=== PATIENT | female | born 1995 | race Caucasian/White ===

== ENCOUNTER → 2022-04-26 | Outpatient (CLI) | payer BC ==
[~2022-04-26] MED LIST: AMPH15TA PO; BIRTH CONTROL PILLS PO
--- NOTE | 2022-04-26 17:05 | Diagnostic Imaging Report ---
INDICATION: survey. TECHNIQUE: Multiple real-time grayscale images were obtained over the gravid uterus. COMPARISON: None. FINDINGS: There is a single live fetus in a cephalic presentation. heart rate was recorded at 129 BPM. Placenta is posterior. Amniotic fluid volume is normal. Cervical length is 5.1 cm. survey demonstrates kidneys, bladder, and stomach to be unremarkable. brain is unremarkable. There is a four-chamber heart. There is a three-vessel cord with normal insertion. spine is unremarkable. Biometrical measurements are as follows: Biparietal 5.48 cm, age 22 weeks 5 days. Head circumference 20.60 cm, age 22 weeks 5 days. Abdominal circumference 16.38 cm, age 21 weeks 4 days. Femur length 3.49 cm, age 21 weeks 1 days. Sonographic estimate age: 22 weeks 1 days. Sonographic estimated date of delivery: 08/29/2022. Estimated Weight: 424 gm (+/- 62 gm). LMP percentile: 53%. heart rate: 129 beats per minute. number: 1 of 1. IMPRESSION: Single live IUP of 22 weeks 1 day gestational age. Estimated date of confinement sonographically is 08/29/2022. Dictated by: Dictated on workstation # [id number]
== END ==
LOC: RAD 13:32
PROVIDERS: ATTEND Nurse Practitioner Women's Health
DX: Z34.02 Encounter for supervision of normal first pregnancy, second trimester (principal); Z3A.22 22 weeks gestation of pregnancy
CPT/HCPCS: 76805

== ENCOUNTER 2022-08-19 12:30 | Outpatient (CLI) | payer BC ==
[~2022-08-19] VITALS: Ht 154.9 cm; Wt 76.8 kg
[2022-08-19 12:40] VITALS: BP 122/73
[2022-08-19 13:44] LABS: BILIRUBIN,URINE NEGATIVE (NEGATIVE); CLARITY,URINE SL CLOUDY; COLOR,URINE YELLOW; GLUCOSE, URINE (UA) NEGATIVE (NEGATIVE); KETONES,URINE 1+ (NEGATIVE); LEUKOCYTE ESTERASE ,URINE 2+ (NEGATIVE); NITRITE,URINE NEGATIVE (NEGATIVE); PH,URINE 6.5 (5-9); PROTEIN,URINE TRACE (NEGATIVE)
[2022-08-19 14:01] LABS: BACTERIA,URINE LARGE /HPF; SQUAMOUS EPITHELIAL CELL,UR 25-50 /HPF; WBC,URINE 25-50 /HPF
[2022-08-19 14:25] VITALS: BP 123/68
--- NOTE | 2022-08-20 08:32 | Physician Query-Final Dx ---
MARIA ESTHER08/20/22 0832: Clinic Account Progress/Dx Physician Query: Please give diagnosis Please include # weeks gestation Date of Service Aug 19, 2022 at 12:30 EDILBERTO TOUSSAINT DO 08/20/22 1617: Clinic Account Progress/Dx DIAGNOSIS: Diagnosis 37 week IUP URI Irregular contractions MARIA ESTHER,SepAug 20, 2022 08:32 EDILBERTO TOUSSAINT DO Aug 20, 2022 16:17
== END 2022-08-19 14:50 ==
LOC: LDRP 12:30 → WSo 12:30
PROVIDERS: ATTEND Obstetrics & Gynecology
DX: O47.1 False labor at or after 37 completed weeks of gestation (principal); O99.52 Diseases of the respiratory system complicating childbirth; Z3A.37 37 weeks gestation of pregnancy
CPT/HCPCS: 81000; 87088

== ENCOUNTER 2022-09-04 01:12 | Inpatient (IN) | payer BC ==
[2022-09-04] VITALS (40 sets, daily range): BP systolic 104–130; BP diastolic 56–87
[~2022-09-04] VITALS: Ht 154.9 cm; Wt 77.1 kg
[2022-09-04] MEDS ORDERED: D5 LR IV SOLUTION 1,000 ML IV SCH (01:45)
[2022-09-04] MEDS ORDERED: D5 LR IV SOLUTION 1,000 ML IV ONE (01:46)
[2022-09-04 01:56] LABS: BASOPHILS # (AUTO) 0.1 10^3/uL (0.0-0.1); BASOPHILS % (AUTO) 0 % (0-10); EOSINOPHILS # (AUTO) 0.1 10^3/uL (0.0-0.3); EOSINOPHILS % (AUTO) 1 % (0-10); HEMATOCRIT 33 % (35-52); HEMOGLOBIN 10.8 g/dL (11.5-16.0); LYMPHOCYTES # (AUTO) 3.4 10^3/uL (1.0-4.0); LYMPHOCYTES % (AUTO) 26 % (12-44); MEAN CORPUSCULAR HEMOGLOBIN 26 pg (25-34); MEAN CORPUSCULAR HGB CONC 33 g/dL (32-36); MEAN CORPUSCULAR VOLUME 78 fL (80-99); MEAN PLATELET VOLUME 11.5 fL (9.0-12.2); MONOCYTES # (AUTO) 1.2 10^3/uL (0.0-1.0); MONOCYTES % (AUTO) 9 % (0-12); NEUTROPHILS # (AUTO) 8.4 10^3/uL (1.8-7.8); NEUTROPHILS % (AUTO) 64 % (42-75); PLATELET COUNT 268 10^3/uL (130-400); WHITE BLOOD COUNT 13.2 10^3/uL (4.3-11.0)
[2022-09-04] MEDS ORDERED: fentaNYL 2 mcg/ml BUPIVA 0.125 100 ML ONE (02:08)
[2022-09-04] MEDS ORDERED: fentaNYL INJ 100 MCG/2 ML AMP ONE (02:22)
[2022-09-04] MEDS ORDERED: BUPIVACAINE 0.25% 30 ML (SENSORCAINE) VIAL ONE (02:22)
[2022-09-04] MEDS ORDERED: diphenhydrAMINE 50 MG/ML INJ (BENADRYL) IV PRN (03:00)
[2022-09-04] MEDS ORDERED: LACTATED RINGERS 1,000 ML IV SCH (03:00)
[2022-09-04] MEDS ORDERED: ONDANSETRON 4 MG/2 ML (SDV) Z0FRAN IV PRN (03:00)
[2022-09-04] MEDS ORDERED: fentaNYL 2 mcg/ml BUPIVA 0.125 100 ML EPI SCH (03:00)
[2022-09-04] MEDS ORDERED: NALOXONE 0.4 MG/ML 1 ML (NARCAN) VIAL IV PRN ×2 (03:00→08:00)
[2022-09-04] MEDS ORDERED: OXYTOCIN PRE-MIX DRIP 500 ML IV ONE ×2 (05:49→07:54)
[2022-09-04] MEDS ORDERED: LIDOCAINE 1% INJ 20 ML VIAL ONE (05:50)
--- NOTE | 2022-09-04 05:57 | History & Physical-OB ---
OB - Chief Complaint & HPI Date/Time Date of Admission: Date of Admission: Sep 04, 2022 at 01:30 Date seen by a Provider: Sep 04, 2022 Time Seen by a Provider: 05:50 Chief Complaint/History OB-Reason for Admission/Chief: Onset of Labor Hx : 1 Hx Para: 0 Expected Date of Delivery: Sep 04, 2022 Gestational Age in Weeks: 40 Gestational Age in Days: 0 Admission Nurse Assessment Rev: Yes History of Labs A neg Antibody neg GBS neg Allergies and Home Medications Allergies Coded Allergies: Penicillins (Unverified Allergy, Mild, SICK, 01/29/11) red dye (Unverified Allergy, Unknown, 04/26/22) RED DYE IN MEDICATIONS Patient Home Medication List Home Medication List Reviewed: Yes Amphet Asp/Amphet/D-Amphet (Adderall 15 Mg Tablet) 15 Mg Tablet, 15 MG PO DAILY, (Reported) Entered as Reported by: MAC COTA on 04/08/14 4020 OB - History Hx of Present Care: Yes Ultrasounds: Normal mid trimester US Obstetrical Complications: None Medical Complications: None Delivery History Hx Blood Disorders: No Adverse Rxn to Tranfusion: No Patient Past Medical History n/a Social History/Family History 2nd Hand Smoke Exposure: No Immunizations Tetanus Booster (TDap): Less than 5yrs OB - Admission Exam Physical Exam HEENT: NCAT Heart: Rhythm Normal Lungs: Clear Abdomen: Gravid Extremities: Normal Reflexes: Normal Cervical Dilatation: 5cm Effacement: 75% Station: -1 Membranes: Intact Heart Rate: 130's Accelerations: Accelerations Present Decelerations: No Decelerations Short Term Variability: Present Correction Variability: Average (6-25) Contractions on Admission: < 5 Minutes Apart Intensity: Mild Labs Laboratory Tests Test 09/04/22 01:35 Range/Units White Blood Count 13.2 H 4.3-11.0 10^3/uL Red Blood Count 4.18 3.80-5.11 10^6/uL Hemoglobin 10.8 L 11.5-16.0 g/dL Hematocrit 33 L 35-52 % Mean Corpuscular Volume 78 L 80-99 fL Mean Corpuscular Hemoglobin 26 25-34 pg Mean Corpuscular Hemoglobin Concent 33 32-36 g/dL Red Cell Distribution Width 14.6 H 10.0-14.5 % Platelet Count 268 130-400 10^3/uL Mean Platelet Volume 11.5 9.0-12.2 fL Immature Granulocyte % (Auto) 1 % Neutrophils (%) (Auto) 64 42-75 % Lymphocytes (%) (Auto) 26 12-44 % Monocytes (%) (Auto) 9 0-12 % Eosinophils (%) (Auto) 1 0-10 % Basophils (%) (Auto) 0 0-10 % Neutrophils # (Auto) 8.4 H 1.8-7.8 10^3/uL Lymphocytes # (Auto) 3.4 1.0-4.0 10^3/uL Monocytes # (Auto) 1.2 H 0.0-1.0 10^3/uL Eosinophils # (Auto) 0.1 0.0-0.3 10^3/uL Basophils # (Auto) 0.1 0.0-0.1 10^3/uL Immature Granulocyte # (Auto) 0.1 0.0-0.1 10^3/uL OB - Assessment/Plan/Diagnosis Assessment Assessment: active labor Admission Dx 27 yo @ 40 weeks Active labor GBS neg Admission Status: Inpatient Order (span 2 midnights) Reason for Inpatient Admission: active labor at term Plan Plan: Expectant Management EDILBERTO TOUSSAINT DO Sep 04, 2022 05:56
[2022-09-04] MEDS ORDERED: CATHETER FLUSH 10 ML SYR IV SCH ×2 (06:00→14:00)
--- NOTE | 2022-09-04 07:37 | OB Labor & Delivery Record ---
L&D History Date of Service Date of Service: Sep 04, 2022 History Expected Date of Delivery: Sep 04, 2022 Gestational Age in Weeks: 40 Hx : 1 Hx Para: 0 Complications Events: Routine care Operative Indications (Cesarea: N/A-Vaginal Delivery Intrapartal Events: None L&D Stage1 Stage One Onset of Labor - Date: Sep 04, 2022 Monitors and Tracing Monitor Mode: External Heart Rate: 130 Monitor Accelerations: Uniform Monitor Decelerations: Early Station: 0 Care Home Variability: Average (6-10) Short Term Variability: Present Presentation: Vertex Rupture of Membranes Spontaneous Ruture of Membrane: Yes Amniotic Membrane Rupture Time: 2340 Amniotic Membrane Fluid Desc.: Clear Vaginal Bleeding Description: Normal Show Progress/Notes Patient presented with SROM in active labor, she progressed without augmentation to complete and + 1 station. Epidural placed at arrival due to pain. L&D Stage2 Stage Two Stage II Date: Sep 04, 2022 Monitors and Tracing Monitor Mode: External Heart Rate: 130 Monitor Accelerations: Uniform Monitor Decelerations: Prolonged Care Home Variability: Average (6-10) Short Term Variability: Present Position: Right Occiput Anterior Presentation: Vertex Cord Descript/Complications Cord Vessel Description: 3 Vessels Complications Patient progression with pushing was limited and there was deep deceleration into the 70s with each contraction. Due to prolonged bradycardia and ineffective maternal pushing low vacuum extraction was done. There was one pop off. Suction cup place on flexion point sagital suture line. With maternal pushing head was slowly and gently extended over a RML episiotomy. Suction released. Anterior shoulder delivered followed by posterior and remainder of infant brought out on to maternal abdomen. Delivery Type Delivery Method: Low Vacuum Extraction Anterior Shoulder: Left Episiotomy/Perineal Laceration Laceraction(s)/Extensions: Yes Episiotomy Description: Right Mediolateral, 3rd degree Sutures Used: Vicryl Degree (describe repair) RML with 3rd degree extension repaired using 3-0 rapide and 2-0 vicryl suture in usual fashion Condition of Delivery 1 minute Comment: 2 5 minute Comment: 5 Notes Live male weight 9lbs 5 oz. Apgars 2/5/8. Requiring PPV to stimulate. Condition of Infant Condition of : Living Exam: No Observed Abnormalities Resuscitation Resuscitation: Bag and Mask L&D Stage3 Stage Three Stage III Date: Sep 04, 2022 Pictocin Pitocin Administration Comment: 30 mu wide open after delivery of placenta Placenta Delivery Placenta Delivery: Spontaneous Delivery Summary Summary Estimated blood loss (mL): 350 Attending at delivery: Edilberto Toussaint DO Condition of Delivery Examined: Cervix Examined, Uterus Explored Post Hemorrhage: No Condition of Mother stable Condition of Infant (s) stable EDILBERTO TOUSSAINT DO Sep 04, 2022 07:37
--- NOTE | 2022-09-04 07:49 | Discharge Inst-Women's Service ---
Discharge Inst-Women's Serv Depart Medication/Instructions New, Converted or Re-Newed RX: Transmitted to Pharmacy Final Diagnosis PPD 1 VAVD Problems Reviewed?: Yes Consults/Follow Up Additional Follow Up: Yes Orders/Referrals Dr. Toussaint in 6 weeks Activity Activity: Activity as Tolerated Driving Instructions: No Driving for 1 Week NO SMOKING: NO SMOKING Nothing Inside Vagina: No Douching, No [place], No Tampons Diet Discharge Diet: No Restrictions Symptoms to Report to : Bleeding Excessive, Pain Increased, Fever Over 101 Degrees F, Vaginal Bleeding Increase, Questions/Concerns For Any Problems or Questions: Contact Your Physician EDILBERTO TOUSSAINT DO Sep 04, 2022 07:49
[2022-09-04] MEDS ORDERED: ACET-93 PO (07:52)
[2022-09-04] MEDS ORDERED: IBUP-1773 PO (07:52)
[2022-09-04] MEDS ORDERED: FERR325T24 PO (07:52)
[2022-09-04] MEDS ORDERED: DIBU30OI TOP (07:52)
[2022-09-04] MEDS ORDERED: BENZ78AE5 TP (07:52)
[2022-09-04] MEDS ORDERED: IBUPROFEN 600 MG (MOTRIN) TAB PO ONE (07:54)
[2022-09-04] MEDS ORDERED: ACETAMINOPHEN 500 MG TAB (TYLENOL) ONE (07:54)
[2022-09-04] MEDS ORDERED: TETANUS,DIPTH,PERTUSS P/F (BOOSTRIX) 0.5 ML VIAL IM ONE (08:00)
[2022-09-04] MEDS ORDERED: OXYTOCIN PRE-MIX DRIP 500 ML IV SCH (08:00)
[2022-09-04] MEDS ORDERED: WITCH HAZEL(TUCKS) 40 EA JAR TOP PRN (08:00)
[2022-09-04] MEDS ORDERED: BENZOCAINE/MENTHOL (DERMOPLAST) 56 ML CAN TP PRN (08:00)
[2022-09-04] MEDS ORDERED: MEASLES,MUMPS,RUBELLA 1 EA INJ SQ ONE (08:00)
[2022-09-04] MEDS ORDERED: DIBUCAINE 1% OINTMENT 30 GM TUBE TOP PRN (08:00)
[2022-09-04] MEDS: IBUPROFEN 600 MG (MOTRIN) TAB PO SCH ×3 (08:03→20:49)
[2022-09-04] MEDS: ACETAMINOPHEN 500 MG TAB (TYLENOL) PO SCH ×3 (08:03→20:49)
[2022-09-04] MEDS: FERROUS SULF 325 MG (IRON) TAB PO SCH (09:00)
[2022-09-04] MEDS ORDERED: DOCUSATE SODIUM 100 MG (COLACE) CAP PO SCH (09:00)
[2022-09-05 00:45] VITALS: BP 135/64
[2022-09-05 06:32] VITALS: BP 106/73
[2022-09-05] MEDS: IBUPROFEN 600 MG (MOTRIN) TAB PO SCH ×2 (06:32→12:16)
[2022-09-05] MEDS: ACETAMINOPHEN 500 MG TAB (TYLENOL) PO SCH ×2 (06:32→12:16)
[2022-09-05 06:42] LABS: BASOPHILS # (AUTO) 0.1 10^3/uL (0.0-0.1); BASOPHILS % (AUTO) 0 % (0-10); EOSINOPHILS % (AUTO) 0 % (0-10); HEMATOCRIT 23 % (35-52); HEMOGLOBIN 7.7 g/dL (11.5-16.0); LYMPHOCYTES % (AUTO) 15 % (12-44); MEAN CORPUSCULAR HEMOGLOBIN 26 pg (25-34); MEAN CORPUSCULAR HGB CONC 33 g/dL (32-36); MEAN CORPUSCULAR VOLUME 80 fL (80-99); MEAN PLATELET VOLUME 11.3 fL (9.0-12.2); MONOCYTES # (AUTO) 1.4 10^3/uL (0.0-1.0); MONOCYTES % (AUTO) 8 % (0-12); NEUTROPHILS # (AUTO) 14.4 10^3/uL (1.8-7.8); NEUTROPHILS % (AUTO) 75 % (42-75); PLATELET COUNT 193 10^3/uL (130-400); WHITE BLOOD COUNT 19.1 10^3/uL (4.3-11.0)
[2022-09-05] MEDS ORDERED: PRENATAL VITAMIN 1 EA TAB PO SCH (07:00)
--- NOTE | 2022-09-05 07:46 | Postpartum Progress Note ---
TAHMINA TOWNSEND 09/05/22 0746: Note Note Day # 1 Subjective: Patient is without complaints. Ambulating, voiding. Tolerating a regular diet without nausea or vomiting. Normal lochia. Pain is well controlled with oral pain medications. Objective: Physical Exam: General - Alert and oriented, no apparent distress Abdomen - Soft, appropriately tender to palpation, non-distended, fundus firm at umbilicus Extremities - no edema, negative Caitlin's bilaterally Assessment: PPD 1 vacuum assisted vaginal delivery Acute blood loss anemia - denies significant bleeding over night Recovering well, hemodynamically stable Plan: Routine care. Encourage breast feeding. Encourage ambulation. Ferrous sulfate supplementation. Plan for discharge today. Vitals - Labs Vital Signs - I&O Vital Signs Date Time Temp Pulse Resp B/P (MAP) Pulse Ox O2 Delivery O2 Flow Rate FiO2 09/05/22 06:32 36.2 88 18 106/73 (84) 97 Room Air 09/05/22 00:45 36.3 101 18 135/64 (87) 97 Room Air 09/04/22 20:49 36.6 93 18 107/66 (80) 96 Room Air 09/04/22 16:00 36.9 115 18 129/71 (90) 96 Room Air 09/04/22 12:10 36.2 101 18 121/68 (85) 97 Room Air 09/04/22 09:00 94 18 112/70 (84) Room Air 09/04/22 08:45 91 18 104/59 (74) Room Air 09/04/22 08:30 92 18 106/59 (75) Room Air 09/04/22 08:15 99 18 120/64 (82) Room Air 09/04/22 08:00 36.4 100 18 123/59 (80) Room Air Labs Laboratory Tests 09/05/22 06:09: White Blood Count 19.1H, Red Blood Count 2.92L, Hemoglobin 7.7#L, Hematocrit 23L , Mean Corpuscular Volume 80, Mean Corpuscular Hemoglobin 26, Mean Corpuscular Hemoglobin Concent 33, Red Cell Distribution Width 14.8H, Platelet Count 193, Mean Platelet Volume 11.3, Immature Granulocyte % (Auto) 1, Neutrophils (%) (Auto) 75, Lymphocytes (%) (Auto) 15, Monocytes (%) (Auto) 8, Eosinophils (%) (Auto) 0, Basophils (%) (Auto) 0, Neutrophils # (Auto) 14.4H, Lymphocytes # (Auto) 3.0, Monocytes # (Auto) 1.4H, Eosinophils # (Auto) 0.0, Basophils # (Auto) 0.1, Immature Granulocyte # (Auto) 0.2H EDILBERTO TOUSSAINT DO 09/05/22 0823: Note Note Verification and Attestation of Medical Student E/M Service A medical student performed and documented this service in my presence. I reviewed and verified all information documented by the medical student and made modifications to such information, when appropriate. I personally performed the physical exam and medical decision making. Edilberto Toussaint, Sep 05, 2022,08:22 TAHMINA TOWNSEND Sep 05, 2022 07:46 EDILBERTO TOUSSAINT DO Sep 05, 2022 08:23
[2022-09-05 08:06] VITALS: BP 90/60
[2022-09-05] MEDS: FERROUS SULF 325 MG (IRON) TAB PO SCH (08:11)
--- NOTE | 2022-09-05 12:54 | Anesthesia-Regional Post-Op ---
Regional Patient Condition Mental Status: Alert, Oriented x3 Circulation: Same as Pre-Op Headache: Absent Sensation: Full Recovery Motor Block: Absent Post Op Complications Complications None Follow Up Care/Instructions Patient Instructions None needed. Anesthesia/Patient Condition Patient is doing well, no complaints, stable vital signs, no apparent adverse anesthesia problems. No complications reported per nursing. ESHA VILLASENOR CRNA Sep 05, 2022 12:54
[2022-09-05 14:00] VITALS: BP 90/60
== END 2022-09-05 14:00 | disposition home or self-care (01) | DRG 768 ==
LOC: WSo 01:12 → LDRP 01:18 → WSo 01:30 → LDRP 10:27
PROVIDERS: ADMIT Obstetrics & Gynecology; ATTEND Obstetrics & Gynecology
PROC: 10D07Z6 Extraction of Products of Conception, Vacuum, Via Natural or Artificial Opening (ICD-10-PCS; principal; 2022-09-04)
PROC: 0DQR0ZZ Repair Anal Sphincter, Open Approach (ICD-10-PCS; 2022-09-04)
DX: O70.20 Third degree perineal laceration during delivery, unspecified (principal); Z37.0 Single live birth; D62 Acute posthemorrhagic anemia; Z3A.40 40 weeks gestation of pregnancy; O90.81 Anemia of the puerperium
CPT/HCPCS: 36415; 85025; 86780; 86850; 86900; 86901; 99212